=== PATIENT | female | born 1985 | race Caucasian/White ===

== ENCOUNTER 2017-04-06 16:26 | Emergency (ER) | payer SELFPAY ==
--- NOTE | 2017-04-06 18:09 | ULT ---
LEFT LOWER EXTREMITY VENOUS DOPPLER WITH SPECTRAL ANALYSIS AND COLOR FLOW EVALUATION: Date: 04/06/17 HISTORY: Left lower extremity swelling/edema. FINDINGS: Saavedra scale, color flow, Doppler evaluation, and spectral analysis of the left lower extremity venous structures is performed with 2D imaging. The left lower extremity common femoral, superficial femor al, popliteal, posterior tibial, proximal greater saphenous, and profunda femoral veins are imaged. There is normal lumen compressibility, flow, and augmentation in the visualized deep venous structur es of the left lower extremity. IMPRESSION: No evidence of a deep venous thrombosis involving the visualized deep venous structures left lower e xtremity. POS: ADAM
== END 2017-04-06 17:55 | disposition home or self-care (01) ==
LOC: ERS 16:26
DX: R60.0 Localized edema (principal); F17.210 Nicotine dependence, cigarettes, uncomplicated

== ENCOUNTER 2017-08-04 14:02 | Emergency (ER) | payer SELFPAY ==
[2017-08-04 14:59] LABS: #Basophils 0.1 thou/uL (0.0-0.2); #Eosinphils 0.1 thou/uL (0.0-0.7); #Lymphocytes 2.8 thou/uL (1.20-3.40); #Monocytes 0.6 thou/uL (0.11-0.59); #Neutrophils 5.5 thou/uL (1.40-6.50); %Basophils 0.7 % (0.0-1.0); %Eosinophils 1.1 % (0.0-10.0); %Lymphocytes 31.4 % (21.0-51.0); %Monocytes 6.2 % (0.0-10.0); %Neutrophils 60.5 % (42.0-75.0); Hemoglobin 13.6 g/dL (12.0-16.0); Mean Corpuscular HGB CONC 34.1 g/dL (32.0-36.0); Mean Corpuscular Hemoglobin 34.1 pg (27.0-31.0); Mean Corpuscular Volume 99.8 fl (81.0-99.0); Mean Platelet Volume 7.8 fL (7.4-10.4); Platelet Count 319 thou/uL (130-400); RBC Distribution Width 11.6 % (11.5-14.5); Red Blood Cell (RBC) Count 3.99 mill/uL (4.20-5.40); White Blood Cell (WBC) Count 9.1 thou/uL (4.8-10.8)
[2017-08-04 15:20] LABS: ALT (SGPT) 16 U/L (8-55); AST (SGOT) 18 U/L (5-34); Albumin 4.6 g/dL (3.5-5.0); Alkaline Phosphatase 74 U/L (40-150); Anion Gap 15 mmol/L (10-20); BUN (Urea Nitrogen) 11 mg/dL (7.0-18.7); Bilirubin, Total 0.2 mg/dL (0.2-1.2); Calc. Creatinine Clearance 0 mL/min (70-130); Calcium 9.8 mg/dL (7.8-10.44); Carbon Dioxide 23 mmol/L (22-29); Chloride 106 mmol/L (98-107); Estimated GFR-MDRD 79; Glucose 108 mg/dL (70-105); Potassium 3.8 mmol/L (3.5-5.1); Protein, Total 7.6 g/dL (6.0-8.3); Sodium 140 mmol/L (136-145)
== END 2017-08-04 16:51 | disposition home or self-care (01) ==
LOC: ERS 14:02
DX: R61 Generalized hyperhidrosis (principal); R25.1 Tremor, unspecified; F17.210 Nicotine dependence, cigarettes, uncomplicated
CPT/HCPCS: 36416; 80053; 84443; 85025; 99284

== ENCOUNTER 2019-11-10 16:35 | Emergency (ER) | payer BC ==
[2019-11-10] MEDS ORDERED: Lidocaine 1% PF 5 ML VIAL ONE (17:11)
--- NOTE | 2019-11-10 18:19 | CON ---
DATE OF CONSULTATION: 11/10/2019 This is Shashank Flores PA-C dictating a report for Dwain Funes MD. We were asked to see the patient for a partial distal tip amputation of the left 3rd digit. The patient came over from [place]. HISTORY: The patient was cutting carrots for stew and accidentally cut the tip of her finger off. She is . She had no other injuries. She is quite tearful, more so just feeling silly about cutting her finger and not for pain reasons. She is approximately 13 weeks . PAST MEDICAL HISTORY: Healthy. PAST SURGICAL HISTORY: She had an appendix and then she had a blood clot in the area of the appendix removed a month later. SOCIAL HISTORY: She is . No smoking, drinking, or drug use. CURRENT MEDICATIONS: Prenatals and Phenergan. ALLERGIES: AZITHROMYCIN, CECLOR, LEVAQUIN, AND SULFA DRUGS. FAMILY HISTORY: Some cardiac, but she has none of these current issues. REVIEW OF SYSTEMS: Healthy, just has some left 3rd digit pain. Rest of review of systems is negative. PHYSICAL EXAMINATION: GENERAL: Well-nourished, well-developed female, alert, pleasant, no acute distress, but a little bit tearful, not due to pain, just emotionally. Speech clear. Answers questions appropriately. She is alert and oriented x3. No acute distress. HEENT: Normal exam. Face symmetric. Tongue midline. NECK: Supple. Trachea midline. LUNGS: Respirations 16. EXTREMITIES: Upper extremities, equal size, shape, symmetry. Normal bulk and tone with the exception of a partially amputated 3rd digit tip on the left. Otherwise, sensations and movements are equal. No other injuries. Rest of physical exam normal. ASSESSMENT: Left 3rd distal tip partial amputation. PLAN: We will get her to the OR with light sedation. [place] the rest of the bone up and clean it out real good, antibiotics, and close up the distal tip of that finger. I have explained the procedure to the patient. She is amenable to go forth with surgery. The OR has been called. We will get her consented. Her questions and concerns have been addressed. Job ID: [id number]
[2019-11-10] MEDS ORDERED: Lidocaine-Prilocaine 2.5% Cream 5 GM TUBE ONE (18:35)
[2019-11-10] MEDS ORDERED: Bupivacaine 0.25% HCL 30 ML VIAL ONE (18:46)
[2019-11-10] MEDS ORDERED: Fentanyl 250 MCG/5 ML VIAL ONE (18:56)
[2019-11-10] MEDS ORDERED: Midazolam HCl 2 mg/2 ml Vial ONE (18:56)
[2019-11-10] MEDS ORDERED: Lidocaine 1% (PF) 30 ML VIAL ONE (19:15)
--- NOTE | 2019-11-11 12:37 | OP ---
DATE OF PROCEDURE: 11/10/2019 PREOPERATIVE DIAGNOSIS: Left long finger tip amputation. POSTOPERATIVE DIAGNOSIS: Left long finger tip amputation. PROCEDURES PERFORMED: 1. Debridement of left long finger distal phalanx. 2. Closure of left long finger tip amputation. ANESTHESIA: Digital block. 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 TOURNIQUET TIME: Zero. ESTIMATED BLOOD LOSS: Less than 5 mL. COMPLICATIONS: None. DRAINS: None. SPECIMEN: None. OUTCOME: Satisfactory. INDICATIONS FOR PROCEDURE: The patient is a 34-year-old lady status post left long finger tip amputation with a knife at her home. The patient was seen and evaluated at the [facility] and then transferred to [facility] for orthopedic evaluation. On evaluation, the patient was found to have a finger tip that was amputated at the tip, exposing the tip of the distal phalanx with slight bony involvement involved. After discussion with the patient including risks and benefits, we decided to proceed with shortening of this digit and closure. Informed consent has been obtained, I believe all questions answered. DESCRIPTION OF PROCEDURE: The patient was brought to the operating room. A previously placed digital block per anesthesia had been performed. A sterile prep and drape were then performed of the left upper extremity. Next, the finger was inspected. There was found to be exposed distal phalanx and a severely damaged nail bed with this laceration coming almost all the way down to the eponychial fold. Given this extension, the eponychial fold was ablated surgically with a scalpel and then the fat pad thinned a bit to allow for rotation of the volar flap across the tip of the finger. This did require just some mild shortening of the distal phalanx, which was done with a rongeur. Once performed, the finger was irrigated and then closed with the volar skin brought over the tip of the finger, suturing it to the skin fold at the level of the nail fold. Once closed, there was found to be reasonable recontouring of the finger tip and good closure of the finger tip itself. This was then dressed with Xeroform gauze and a tube gauze dressing. The patient was then transferred to recovery room in stable condition with plans to allow her to be discharged to home this evening. Job ID: [id number]
== END 2019-11-10 17:52 | disposition admitted as inpatient to this hospital (09) ==
LOC: ERS 16:35
PROC: 0PBV0ZZ Excision of Left Finger Phalanx, Open Approach (ICD-10-PCS; principal; 2019-11-10)
PROC: 0XQRXZZ Repair Left Middle Finger, External Approach (ICD-10-PCS; 2019-11-10)
DX: O9A.211 Injury, poisoning and certain other consequences of external causes complicating pregnancy, first trimester (principal); S68.113A Complete traumatic metacarpophalangeal amputation of left middle finger, initial encounter; Z87.891 Personal history of nicotine dependence; Z79.899 Other long term (current) drug therapy; Z3A.13 13 weeks gestation of pregnancy; W26.0XXA Contact with knife, initial encounter
CPT/HCPCS: 64450; J2001; J2250; J3010; S0020